=== PATIENT | female | born 1980 | race African-American/Black ===

== ENCOUNTER 2017-07-25 10:45 | Emergency (ER) | payer OTHER ==
[~2017-07-25] VITALS: Ht 160 cm; Wt 81.5 kg
[~2017-07-25 10:45] MED LIST: ALBUTEROL SULF8.5 GM IH; ALL DAY ALLERGY5 MG PO; CEPHALEXIN500 M2 PO; CLEOCIN150 MG PO; CLINDAMYCIN HC300 MG PO; DEPAKOTE ER500 MG PO; EFFEXOR50 MG PO; FLONASE16 G1 NS; HYDROCHLOROTHIA25 MG PO; HYDROCHLOROTHIAZIDE; KEFLEX500 MG PO; LAMICTAL ODT25 MG PO; LOPRESSOR100 M1 PO; LOXAPINE25 MG PO; LOXITANE PO; METADATE CD40 MG; MOTRIN800 MG PO; MUCUS RELIEF600 MG PO; NOHOMEMEDS; PHENERGAN-CODE120 ML PO; PROMETHAZINE HC25 M1 PO; ROBITUSSIN NIG118 ML PO; TESSALON PERLE100 MG PO; TRAZODONE HCL100 MG PO; TRAZODONE HCL300 MG PO; TYLOX1 CAPSULE PO; ULTRAM50 MG PO; VICODIN 5-5001 EACH PO; VYVANSE30 MG PO; VYVANSE50 MG PO; VYVANSE60 MG PO; ZANTAC150 M1 PO; ZESTRIL10 MG PO; ZOFRAN ODT4 MG PO
[2017-07-25 11:20] LABS: HEMATOCRIT 36.7 % (36.0-46.0); HEMOGLOBIN 12.5 G/DL (11.9-15.5); MCH 30.8 PG (29.0-34.0); MCHC 34.1 G/DL (30.0-36.0); MCV 90.4 FL (83-99); PLATELET COUNT 193 K/uL (156-360); RBC DIS.WIDTH-CV 11.9 % (11.8-14.6); RBC DIS.WIDTH-SD 39.8 % (39-53); RED BLOOD COUNT 4.06 M/uL (3.80-5.20); WHITE BLOOD COUNT 3.9 K/uL (4.1-10.2)
[2017-07-25 11:31] LABS: CHLORIDE 104 mEq/L (99-109); POTASSIUM 3.6 mEq/L (3.7-5.4)
[2017-07-25 11:32] LABS: SODIUM 136 mEq/L (136-147)
[2017-07-25 11:33] LABS: GLUCOSE 122 mg/dL (70-99)
[2017-07-25 11:37] LABS: CREATININE 0.8 mg/dL (0.6-1.3); GFR ESTIMATE (CALCULATED) > 59 mL/min/
[2017-07-25 11:38] LABS: UREA NITROGEN (BUN) 11 mg/dL (9-23)
[2017-07-25 13:43] LABS: APPEARANCE CLOUDY ((CLEAR)); BILIRUBIN NEGATIVE; BLOOD NEGATIVE; COLOR YELLOW ((YELLOW)); GLUCOSE (STRIP) NEGATIVE; KETONES NEGATIVE; LEUKOCYTES SMALL; NITRITE NEGATIVE; PROTEIN (STRIP) NEGATIVE
[2017-07-25 13:55] LABS: BACTERIA RARE /HPF; EPITHELIAL CELLS 4+ /HPF; MUCUS TRACE /LPF; RED BLOOD CELLS 0-5 /HPF (0-5); UCUL ADDED? YES; WHITE BLOOD CELLS 30-40 /HPF (0-5)
[2017-07-25] MEDS ORDERED: CIPRO500 MG PO (15:25)
[2017-07-25 15:37] VITALS: BP 132/98
== END 2017-07-25 15:39 | disposition home or self-care (01) ==
LOC: EME 10:45
PROVIDERS: Physician Assistant
DX: N39.0 Urinary tract infection, site not specified (principal); Z87.442 Personal history of urinary calculi; I10 Essential (primary) hypertension; M43.06 Spondylolysis, lumbar region; Z88.1 Allergy status to other antibiotic agents
CPT/HCPCS: 74176; 80048; 81003; 84703; 85027; 87086; 99281; 99285

== ENCOUNTER 2017-08-16 10:02 | Emergency (ER) | payer OTHER ==
[~2017-08-16] VITALS: Ht 160 cm; Wt 80.6 kg
[~2017-08-16 10:02] MED LIST changes: +CIPRO500 MG PO
[2017-08-16 12:47] VITALS: BP 148/89
== END 2017-08-16 12:47 | disposition home or self-care (01) ==
LOC: EME 10:02
DX: J10.1 Influenza due to other identified influenza virus with other respiratory manifestations (principal); R51 Headache; M54.5 Low back pain; H92.09 Otalgia, unspecified ear; I10 Essential (primary) hypertension
CPT/HCPCS: 87502